=== PATIENT | female | born 1980 | race Caucasian/White ===

== ENCOUNTER 2016-08-06 15:58 | Emergency (ER) | payer OTHER ==
--- NOTE | ~2016-08-06 | CR126 ---
[facility] A Service of [facility] & [facility] RADIOLOGY TEXT RESULTS PATIENT: NICHOL CRANE LOCATION: [facility] : [birth year] UNIT #: [id number] AGE: [address]: uLl Mosqueda MD SEX: F ORDER DR: [id number] [facility] [address] [place], [place] [address] [id number] E MR#: [id number] Acc #: [id number] NAME: NICHOL CRANE : 1980 SEX: F STUDY DATE/TIME: 08/06/2016 15:45 UNIT: [facility] ROOM: STUDY DESCRIPTION: CR Foot Complete Min 3 View Lt Attending Physician: Lul Mosqueda M.D. Ordering Physician: Lul Mosqueda M.D. Primary Care Physician: No Primary Care Physician MEDICAL IMAGING REPORT This report is preliminary unless electronic signature is present EXAM Left foot, 3 views. HISTORY Foot pain and swelling for 1 week. FINDINGS 3 views of the left foot demonstrate normal bone alignment. No fracture, joint space narrowing or dislocation. No opaque soft tissue foreign body. IMPRESSION Negative. Dictated by... Davonte Bergman M.D. THIS IS AN ELECTRONICALLY VERIFIED REPORT Davonte Bergman M.D. at 08/06/2016 11:12 PM DFTang/ang TD: 08/06/2016 19:17 JOB #: [id number] MEDICAL IMAGING REPORT Page 1 of 1 COPY
--- NOTE | ~2016-08-06 | CR20 ---
[facility] A Service of [facility] & [facility] RADIOLOGY TEXT RESULTS PATIENT: NICHOL CRANE LOCATION: [facility] : 82 UNIT #: [id number] AGE: [address]: Lul Mosqueda MD SEX: F ORDER DR: [id number] [facility] [address] [place], [place] [address] [id number] E MR#: [id number] Acc #: [id number] NAME: NICHOL CRANE : 1980 SEX: F STUDY DATE/TIME: 08/06/2016 15:44 UNIT: [facility] ROOM: STUDY DESCRIPTION: CR Ankle Min 3 Views Lt Attending Physician: Lul Mosqueda M.D. Ordering Physician: Lul Mosqueda M.D. MEDICAL IMAGING REPORT This report is preliminary unless electronic signature is present EXAM Left ankle 3 views HISTORY Left foot and ankle pain and swelling x1 week. No known injury. FINDINGS AP, lateral, and oblique projections of the ankle show satisfactory integrity of the joint mortise with a smooth articular surface. There is no identifiable fracture, dislocation, or radiopaque foreign body. IMPRESSION Normal ankle. Dictated by... Valeria Paez M.D. THIS IS AN ELECTRONICALLY VERIFIED REPORT Valeria Paez M.D. at 08/06/2016 8:37 PM CRESENCIO/morgan TD: 08/06/2016 18:58 JOB #: [id number] MEDICAL IMAGING REPORT Page 1 of 1 COPY
[~2016-08-06 15:58] MED LIST: ALBUTEROL17 GM INH; ALDOMET250 MG PO; AMOXICILLIN500 M1; AMOXICILLIN500 M1 PO; AZITHROMYCIN250 MG PO; BENZONATATE PO; BLEPH-105 M1 OP; CLEOCIN PO; FIORICET 50-321 EACH PO; FLEXERIL PO; FLEXERIL10 MG PO; KEFLEX500 M1 PO; KETOPROFEN PO; LORTAB 10-5001 EACH PO; LORTAB 7.5-5001 TAB PO; METHYLDOPA PO; ORUDIS75 M1 DOB; ORUDIS75 M1 PO; PREDNISONE PO; PRENATAL VITAMI1 TA3 PO; VOLTAREN75 MG PO; ZOFRAN PO
== END 2016-08-06 17:05 | disposition home or self-care (01) ==
LOC: CED 15:58
DX: M25.572 Pain in left ankle and joints of left foot (principal)
CPT/HCPCS: 73610; 73630; 99283

== ENCOUNTER 2016-12-07 09:54 | Emergency (ER) | payer OTHER ==
[~2016-12-07] VITALS: Ht 165.1 cm; Wt 108.9 kg
== END 2016-12-07 11:20 | disposition home or self-care (01) ==
LOC: CED 09:54 → CFTX 09:54
DX: J02.9 Acute pharyngitis, unspecified (principal); J03.90 Acute tonsillitis, unspecified
CPT/HCPCS: 87651; 99283